=== PATIENT | female | born 1995 | race American Indian/Alaskan Native ===

== ENCOUNTER 2018-01-23 20:50 | Emergency (ER) | payer BC ==
[2018-01-23 21:38] VITALS: BP 117/76
[2018-01-23] MEDS ORDERED: MOTRIN PO ONE (22:49)
[2018-01-23] MEDS ORDERED: BACTRIM DS PO ONE (22:49)
[2018-01-23 22:52] LABS: HCG Qualitative,Urine Negative (Negative)
--- NOTE | 2018-01-23 22:54 | Emergency Department Report ---
ED Extremity Problem HPI - General Chief complaint: Extremity Injury, Lower Stated complaint: RT PINKY TOE PAIN Time Seen by Provider: 01/23/18 22:46 Source: patient Mode of arrival: Ambulatory Limitations: No Limitations - History of Present Illness Initial comments: Patient is a 22-year-old asthmatic female who states she has a lesion on the right toes been present for proximally 4 months. This is an area of hyperpigmentation and increased skin. Patient states the last her 2 days to some increased erythema surrounding this lesion and increased pain. Patient states pain is 8 out of 10 in severity hers worse when she's walking when this is a shoe on better when is no shoe. Patient denies any fevers chills nausea vomiting at this time. - Related Data Previous Rx's Medication Instructions Recorded Last Taken Type Ibuprofen [Motrin] 600 mg PO Q8H PRN #20 tablet 01/23/18 Unknown Rx Sulfamethoxazole/Trimethoprim 1 each PO BID #14 tablet 01/23/18 Unknown Rx [Bactrim DS TAB] traMADol [Ultram] 50 mg PO Q6HR PRN #10 tablet 01/23/18 Unknown Rx Allergies Allergy/AdvReac Type Severity Reaction Status Date / Time No Known Allergies Allergy Unverified 01/23/18 22:39 ED Review of Systems ROS: Stated complaint: RT PINKY TOE PAIN Other details as noted in HPI Comment: All other systems reviewed and negative ED Past Medical Hx - Past Medical History Previous Medical History?: No - Surgical History Past Surgical History?: No - Social History Smoking Status: Never Smoker Substance Use Type: None - Medications Home Medications: Home Medications Medication Instructions Recorded Confirmed Last Taken Type Ibuprofen [Motrin] 600 mg PO Q8H PRN #20 tablet 01/23/18 Unknown Rx Sulfamethoxazole/Trimethoprim 1 each PO BID #14 tablet 01/23/18 Unknown Rx [Bactrim DS TAB] traMADol [Ultram] 50 mg PO Q6HR PRN #10 tablet 01/23/18 Unknown Rx ED Physical Exam - General Limitations: No Limitations General appearance: alert, in no apparent distress - Head Head exam: Present: atraumatic, normocephalic - Eye Eye exam: Present: normal appearance - ENT ENT exam: Present: mucous membranes moist - Neck Neck exam: Present: normal inspection - Respiratory Respiratory exam: Present: normal lung sounds bilaterally. Absent: respiratory distress - Cardiovascular Cardiovascular Exam: Present: regular rate, normal rhythm. Absent: systolic murmur, diastolic murmur, rubs, gallop - GI/Abdominal GI/Abdominal exam: Present: soft, normal bowel sounds - Extremities Exam Extremities exam: Absent: normal inspection (patient's right fifth toe has a area of hyperpigmentation with some increased skin thickening consistent with a corn. There is some surrounding erythema and pain with palpation.) - Back Exam Back exam: Present: normal inspection - Neurological Exam Neurological exam: Present: alert, oriented X3 - Psychiatric Psychiatric exam: Present: normal affect, normal mood - Skin Skin exam: Present: warm, dry, intact, normal color. Absent: rash ED Course Vital Signs 01/23/18 21:08 Temperature 99.9 F H Pulse Rate 92 H Respiratory 18 Rate Blood Pressure 117/76 O2 Sat by Pulse 98 Oximetry ED Medical Decision Making - Medical Decision Making Patient will be started on antibiotics for a early cellulitis to the right great toe I will be referred to podiatry Critical care attestation.: If time is entered above; I have spent that time in minutes in the direct care of this critically ill patient, excluding procedure time. ED Disposition Clinical Impression: [place] or callus Cellulitis, toe Qualifiers: Laterality: right Qualified Code(s): L03.031 - Cellulitis of right toe Disposition: DC-01 TO HOME OR SELFCARE Is pt being admited?: No Does the pt Need Aspirin: No Condition: Stable Instructions: Cellulitis (ED) Referrals: VALERIE LÓPEZ DPM [Staff Physician] - 3-5 Days Time of Disposition: 22:55
--- NOTE | 2018-01-23 23:25 | XRay Report ---
FINAL REPORT EXAM: XR FOOT 2V RT HISTORY: right 5th toe pain TECHNIQUE: 2 views right foot PRIORS: None. FINDINGS: No fracture or dislocation identified. Joint spaces are within normal limits. No radiopaque foreign body seen. No soft tissue abnormality identified. IMPRESSION: Negative foot series
== END 2018-01-23 23:43 | disposition home or self-care (01) ==
LOC: ED 20:50
DX: L03.031 Cellulitis of right toe (principal); L84 Corns and callosities
CPT/HCPCS: 81025; 99283